=== PATIENT | female | born 1980 | race Caucasian/White ===

== ENCOUNTER 2018-06-13 03:47 | Emergency (ER) | payer BC ==
[~2018-06-13] VITALS: Ht 170.2 cm; Wt 46.3 kg
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
--- NOTE | 2018-06-13 04:08 | NUR ---
MD AT BEDSIDE FOR EVALUATION
[2018-06-13] MEDS ORDERED: LORAZEPAM 1 MG TABLET ONE (04:12)
[2018-06-13] MEDS ORDERED: LORAZEPAM 1 MG TABLET PO ONE (04:30)
--- NOTE | 2018-06-13 04:40 | NUR ---
PT STILL APPEARS TEARFUL BUT STATES SHE IS STARTING TO FEEL MORE CALM AFTER ADMINISTRATION OF ATIVAN
--- NOTE | 2018-06-13 05:20 | NUR ---
Patient discharged to home in stable condition. Written and verbal after care instructions given. Patient verbalizes understanding of instruction. Pt ambulatory with a steady gait. Pt instructed not to drive
[2018-06-13 05:21] VITALS: BP 103/70
== END 2018-06-13 05:21 | disposition home or self-care (01) ==
LOC: ER 03:51
DX: F41.9 Anxiety disorder, unspecified (principal)
CPT/HCPCS: 99284; A4606; Z7610

== ENCOUNTER 2019-03-27 07:25 | Outpatient (CLI) | payer BC ==
[2019-03-27 08:55] LABS: BASOPHILS # (AUTO) 0.1 /CMM (0.0-0.2); BASOPHILS % (AUTO) 0.8 % (0.0-2.0); EOSINOPHILS % (AUTO) 2.1 % (0.0-6.0); HEMATOCRIT 36 % (33-45); HEMOGLOBIN 11.4 g/dL (11.5-14.8); LYMPHOCYTES % (AUTO) 27.5 % (20.0-44.0); MEAN CORPUSCULAR HGB CONC 32 g/dl (31.0-36.0); MEAN CORPUSCULAR VOLUME 81 fL (82-100); MONOCYTES # (AUTO) 0.4 /CMM (0.1-1.30); NEUTROPHILS # (AUTO) 4.8 /CMM (1.8-8.9); NEUTROPHILS % (AUTO) 64.6 % (43.0-81.0); PLATELET COUNT (AUTO) 310 /CMM (150-450); RED BLOOD CELL COUNT(AUTO) 4.39 MIL/uL (4.0-5.2); WHITE BLOOD COUNT (AUTO) 7.4 K/uL (4.3-11.0)
[2019-03-27 09:11] LABS: ALBUMIN 3.9 g/dL (3.4-5.0); BILIRUBIN,TOTAL 0.2 mg/dL (0.2-1.0); CALCIUM, SERUM 8.8 mg/dL (8.5-10.1); CREATININE 0.6 mg/dL (0.6-1.3); POTASSIUM 3.9 mmol/L (3.5-5.1); TOTAL PROTEIN, SERUM 8.3 g/dL (6.4-8.2)
[2019-03-27 09:22] LABS: THYROID STIMULATING HORMONE 1.638 uIU/mL (0.358-3.74)
[2019-03-28 08:07] LABS: T3 TOTAL 131 ng/dL (71-180)
== END 2019-03-27 23:59 | disposition home or self-care (01) ==
LOC: LAB 07:25
DX: Z00.00 Encounter for general adult medical examination without abnormal findings (principal); A64 Unspecified sexually transmitted disease; R52 Pain, unspecified
CPT/HCPCS: 80053-TC; 80061-TC; 82728-TC; 83540-TC; 84439-TC; 84443-TC; 84480; 85025-TC; 86592; 87491; 87591

== ENCOUNTER 2019-05-25 23:57 | Emergency (ER) | payer BC, OTHER ==
[~2019-05-25] VITALS: Ht 167.6 cm; Wt 49.9 kg
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
--- NOTE | 2019-05-26 00:22 | NUR ---
EKG IN PROGRESS AT THE BEDSIDE.
[2019-05-26] MEDS ORDERED: LORAZEPAM 1 MG TABLET ONE (00:47)
[2019-05-26] MEDS ORDERED: MAG HYDROX/AL HYDROX/SIMETH 30 ML UDC ONE (00:47)
--- NOTE | 2019-05-26 00:51 | NUR ---
CXR IN PROGRESS AT THE BEDSIDE.
[2019-05-26] MEDS ORDERED: LORAZEPAM 1 MG TABLET PO ONE (01:00)
[2019-05-26] MEDS ORDERED: MAG HYDROX/AL HYDROX/SIMETH 30 ML UDC PO ONE (01:00)
--- NOTE | 2019-05-26 01:10 | NUR ---
PT DENIES PAIN AT THIS TIME. PT APPEARS CALM.
--- NOTE | 2019-05-26 01:35 | NUR ---
Patient discharged to home in stable condition. Written and verbal after care instructions given. Patient verbalizes understanding of instruction AND RX. PT AMBULATED OUT WITH A STEADY GAIT. VSS.
[2019-05-26 01:36] VITALS: BP 94/65
== END 2019-05-26 01:36 | disposition home or self-care (01) ==
LOC: ER 05-26
DX: K21.9 Gastro-esophageal reflux disease without esophagitis (principal); F41.9 Anxiety disorder, unspecified
CPT/HCPCS: 71045-TC

== ENCOUNTER 2019-08-12 08:26 | Outpatient (CLI) | payer BC, OTHER ==
[2019-08-12 08:59] LABS: BASOPHILS # (AUTO) 0.1 /CMM (0.0-0.2); BASOPHILS % (AUTO) 0.7 % (0.0-2.0); EOSINOPHILS % (AUTO) 1.2 % (0.0-6.0); HEMATOCRIT 39 % (33-45); HEMOGLOBIN 12.4 g/dL (11.5-14.8); LYMPHOCYTES # (AUTO) 2.6 /CMM (0.8-4.8); LYMPHOCYTES % (AUTO) 30.9 % (20.0-44.0); MEAN CORPUSCULAR HGB CONC 32 g/dl (31.0-36.0); MEAN CORPUSCULAR VOLUME 82 fL (82-100); MONOCYTES # (AUTO) 0.6 /CMM (0.1-1.30); MONOCYTES % (AUTO) 6.6 % (2.0-12.0); NEUTROPHILS # (AUTO) 5.1 /CMM (1.8-8.9); NEUTROPHILS % (AUTO) 60.6 % (43.0-81.0); PLATELET COUNT (AUTO) 441 /CMM (150-450); RED BLOOD CELL COUNT(AUTO) 4.73 MIL/uL (4.0-5.2); WHITE BLOOD COUNT (AUTO) 8.4 K/uL (4.3-11.0)
[2019-08-12 09:48] LABS: ALBUMIN 4.2 g/dL (3.4-5.0); BILIRUBIN,TOTAL 0.3 mg/dL (0.2-1.0); CALCIUM, SERUM 9.6 mg/dL (8.5-10.1); CREATININE 0.7 mg/dL (0.6-1.3); POTASSIUM 4.8 mmol/L (3.5-5.1); TOTAL PROTEIN, SERUM 8.8 g/dL (6.4-8.2)
[2019-08-14 10:06] LABS: *SPE A/G RATIO 0.9 (0.7-1.7); *SPE ALBUMIN 3.8 g/dL (2.9-4.4); *SPE ALPHA-1-GLOBULIN 0.3 g/dL (0.0-0.4); *SPE ALPHA-2-GLOBULIN 0.8 g/dL (0.4-1.0); *SPE BETA GLOBULIN 1.5 g/dL (0.7-1.3); *SPE GLOBULIN, TOTAL 4.4 g/dL (2.2-3.9); *SPE M-SPIKE Not Observed g/dL (Not Observed); *SPEGAMMA GLOBULIN 1.6 g/dL (0.4-1.8)
== END 2019-08-12 23:59 | disposition home or self-care (01) ==
LOC: LAB 08:26
DX: D50.9 Iron deficiency anemia, unspecified (principal); D89.2 Hypergammaglobulinemia, unspecified
CPT/HCPCS: 80053-TC; 82728-TC; 83540-TC; 84155; 84165; 85025-TC

== ENCOUNTER 2019-08-16 08:39 | Outpatient (CLI) | payer BC, OTHER ==
[2019-08-19 08:06] LABS: *SPE ALBUMIN 3.9 g/dL (2.9-4.4); *SPE ALPHA-1-GLOBULIN 0.3 g/dL (0.0-0.4); *SPE ALPHA-2-GLOBULIN 0.8 g/dL (0.4-1.0); *SPE BETA GLOBULIN 1.4 g/dL (0.7-1.3); *SPE GLOBULIN, TOTAL 3.9 g/dL (2.2-3.9); *SPE M-SPIKE Not Observed g/dL (Not Observed); *SPEGAMMA GLOBULIN 1.4 g/dL (0.4-1.8)
== END 2019-08-16 23:59 | disposition home or self-care (01) ==
LOC: LAB 08:39
DX: D89.2 Hypergammaglobulinemia, unspecified (principal)
CPT/HCPCS: 36415; 84155; 84155-TC; 84165

== ENCOUNTER 2021-10-07 07:04 | Emergency (ER) | payer BC, OTHER ==
[~2021-10-07] VITALS: Ht 167.6 cm; Wt 47.6 kg
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
[2021-10-07] MEDS ORDERED: ONDANSETRON HCL/PF 4 MG/2 ML VIAL ONE (07:26)
[2021-10-07] MEDS ORDERED: ONDANSETRON HCL/PF 4 MG/2 ML VIAL IVP ONE (07:30)
[2021-10-07] MEDS ORDERED: IV NS 0.9% 1,000 ML BAG IV ONE (07:30)
[2021-10-07 07:53] LABS: BASOPHILS # (AUTO) 0.1 K/uL (0.0-0.2); BASOPHILS % (AUTO) 0.4 % (0.0-2.0); EOSINOPHILS % (AUTO) 0.3 % (0.0-6.0); HEMATOCRIT 33 % (33-45); HEMOGLOBIN 10.7 g/dL (11.5-14.8); LYMPHOCYTES # (AUTO) 1.2 K/uL (0.8-4.8); LYMPHOCYTES % (AUTO) 8.9 % (20.0-44.0); MEAN CORPUSCULAR HGB CONC 32 g/dl (31.0-36.0); MEAN CORPUSCULAR VOLUME 79 fL (82-100); MONOCYTES # (AUTO) 0.6 K/uL (0.1-1.30); MONOCYTES % (AUTO) 4.3 % (2.0-12.0); NEUTROPHILS # (AUTO) 11.6 K/uL (1.8-8.9); NEUTROPHILS % (AUTO) 86.1 % (43.0-81.0); PLATELET COUNT (AUTO) 384 K/uL (150-450); RED BLOOD CELL COUNT(AUTO) 4.22 MIL/uL (4.0-5.2); WHITE BLOOD COUNT (AUTO) 13.5 K/uL (4.3-11.0)
[2021-10-07 08:00] LABS: CALCIUM, SERUM 8.7 mg/dL (8.5-10.1); CREATININE 0.7 mg/dL (0.6-1.3); POTASSIUM 4.2 mmol/L (3.5-5.1)
[2021-10-07 08:06] LABS: ALBUMIN 3.7 g/dL (3.4-5.0); BILIRUBIN,DIRECT 0.1 mg/dL (0.0-0.2); BILIRUBIN,TOTAL 0.3 mg/dL (0.2-1.0)
[2021-10-07 09:13] VITALS: BP 124/81
--- NOTE | 2021-10-07 09:13 | NUR ---
IV removed. Catheter intact and site benign. Pressure and 4x4 applied to site. No bleeding noted.Patient discharged to home in stable condition. Written and verbal after care instructions given. Patient verbalizes understanding of instruction.
== END 2021-10-07 09:14 | disposition home or self-care (01) ==
LOC: ER 07:10
DX: R55 Syncope and collapse (principal); F41.9 Anxiety disorder, unspecified
CPT/HCPCS: 36415; 80048; 80076; 85025; 93005; 96361; 96374; 99284; J2405; J7030

== ENCOUNTER 2022-08-22 05:57 | Emergency (ER) | payer BC, OTHER ==
[~2022-08-22] VITALS: Ht 167.6 cm; Wt 45.4 kg
[2022-08-22 06:56] VITALS: BP 122/68
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
--- NOTE | 2022-08-22 07:19 | NUR ---
SENIOR BENEFITS ANALYST AT BEDSIDE
--- NOTE | 2022-08-22 07:21 | NUR ---
REPORT GIVEN TO JAYCE LANG
[2022-08-22] MEDS ORDERED: HYDROCODONE/APAP 5/325MG TABLET ONE (07:23)
[2022-08-22] MEDS ORDERED: HYDROCODONE/APAP 5/325MG TABLET PO ONE (07:30)
--- NOTE | 2022-08-22 08:00 | NUR ---
pt able to move and wigle rt hnd
[2022-08-22] MEDS ORDERED: HYDR-3980 PO (08:21)
--- NOTE | 2022-08-22 08:30 | NUR ---
Patient discharged to home in stable condition. Written and verbal after care instructions given. Patient verbalizes understanding of instruction.
== END 2022-08-22 08:35 | disposition home or self-care (01) ==
LOC: ER 05:58
DX: S67.21XA Crushing injury of right hand, initial encounter (principal); F41.9 Anxiety disorder, unspecified; W23.0XXA Caught, crushed, jammed, or pinched between moving objects, initial encounter; Y93.89 Activity, other specified; Y92.89 Other specified places as the place of occurrence of the external cause; Y99.8 Other external cause status
CPT/HCPCS: 73110; 73130-TC